=== PATIENT | female | born 1935 | race Two or more races ===

== ENCOUNTER 2017-12-02 13:08 | Emergency (ER) | payer OTHER ==
[~2017-12-02] VITALS: Ht 152.4 cm; Wt 57.6 kg
[2017-12-02 13:21] VITALS: BP 167/85; Ht 152.4 cm; Wt 57.6 kg
[2017-12-02 17:25] LABS: UA SPECIFIC GRAVITY 1.015 (1.005-1.035); microscopic required? YES; urine erythrocyte TRACE (NEGATIVE)
== END 2017-12-02 17:18 | disposition home or self-care (01) ==
LOC: ED 13:08
PROVIDERS: Emergency Medicine
DX: K59.00 Constipation, unspecified (principal); R31.29 Other microscopic hematuria; E78.00 Pure hypercholesterolemia, unspecified; I10 Essential (primary) hypertension; E11.9 Type 2 diabetes mellitus without complications; Z88.2 Allergy status to sulfonamides

== ENCOUNTER 2018-08-07 10:26 | Emergency (ER) | payer OTHER ==
[~2018-08-07] VITALS: Ht 152.4 cm; Wt 48.1 kg
[2018-08-07 10:35] VITALS: Ht 152.4 cm; Wt 48.1 kg
[2018-08-07 11:20] LABS: CALCIUM 8.9 mg/dL (8.5-10.1); CARBON DIOXIDE 26.8 mmol/L (21-32); CHLORIDE SERUM 91 mmol/L (98-107); CREATININE SERUM 0.7 mg/dL (0.6-1.0); GLUCOSE SERUM 114 mg/dL (74-106); SODIUM SERUM 127 mmol/L (136-145)
[2018-08-07 14:30] VITALS: BP 145/80
== END 2018-08-07 14:30 | disposition home or self-care (01) ==
LOC: ED 10:26
PROVIDERS: Emergency Medicine
DX: S80.812A Abrasion, left lower leg, initial encounter (principal); I10 Essential (primary) hypertension; E11.9 Type 2 diabetes mellitus without complications; E78.00 Pure hypercholesterolemia, unspecified; G89.29 Other chronic pain; E87.1 Hypo-osmolality and hyponatremia; Z88.2 Allergy status to sulfonamides; W18.39XA Other fall on same level, initial encounter; Y93.89 Activity, other specified; Y92.89 Other specified places as the place of occurrence of the external cause; Y99.8 Other external cause status
CPT/HCPCS: J1885; J7030

== ENCOUNTER 2018-08-12 10:51 | Emergency (ER) | payer OTHER ==
[~2018-08-12] VITALS: Ht 152.4 cm; Wt 47.4 kg
[2018-08-12 11:01] VITALS: Ht 152.4 cm; Wt 47.4 kg
[2018-08-12 11:32] LABS: BASOPHIL % 0.5 % (0-2); PLATELET COUNT 318 x10^3mcL (130-400); RED CELL DISTRIBUTION WIDTH 14.1 % (11.5-14.5)
[2018-08-12 11:37] LABS: CALCIUM 9.2 mg/dL (8.5-10.1); CARBON DIOXIDE 24.8 mmol/L (21-32); CHLORIDE SERUM 98 mmol/L (98-107); CREATININE SERUM 0.8 mg/dL (0.6-1.0); GLUCOSE SERUM 215 mg/dL (74-106); POTASSIUM SERUM 3.9 mmol/L (3.5-5.1); SODIUM SERUM 131 mmol/L (136-145)
[2018-08-12 12:59] VITALS: BP 176/77
== END 2018-08-12 12:57 | disposition home or self-care (01) ==
LOC: ED 10:51
PROVIDERS: Emergency Medicine
DX: E11.40 Type 2 diabetes mellitus with diabetic neuropathy, unspecified (principal); E87.1 Hypo-osmolality and hyponatremia; I10 Essential (primary) hypertension; E78.00 Pure hypercholesterolemia, unspecified; Z88.2 Allergy status to sulfonamides
CPT/HCPCS: J1885; J7030

== ENCOUNTER 2020-05-25 18:31 | Emergency (ER) | payer OTHER ==
[~2020-05-25] VITALS: Ht 152.4 cm; Wt 52.2 kg
[2020-05-25 18:38] VITALS: Ht 152.4 cm; Wt 52.2 kg
[2020-05-25 20:05] VITALS: BP 169/76
== END 2020-05-25 20:05 | disposition home or self-care (01) ==
LOC: ED 18:31
DX: M96.831 Postprocedural hemorrhage of a musculoskeletal structure following other procedure (principal); I10 Essential (primary) hypertension; E11.9 Type 2 diabetes mellitus without complications; E78.00 Pure hypercholesterolemia, unspecified; M81.0 Age-related osteoporosis without current pathological fracture; Z88.2 Allergy status to sulfonamides

== ENCOUNTER 2020-07-04 14:53 | Emergency (ER) | payer OTHER ==
[~2020-07-04] VITALS: Ht 149.9 cm; Wt 50.3 kg
[2020-07-04 14:59] VITALS: Ht 149.9 cm; Wt 50.3 kg
[2020-07-04 17:47] VITALS: BP 181/77
== END 2020-07-04 17:47 | disposition home or self-care (01) ==
LOC: ED 14:53
DX: M54.41 Lumbago with sciatica, right side (principal); R20.0 Anesthesia of skin; I10 Essential (primary) hypertension; E11.9 Type 2 diabetes mellitus without complications; M81.0 Age-related osteoporosis without current pathological fracture; E78.00 Pure hypercholesterolemia, unspecified; M19.90 Unspecified osteoarthritis, unspecified site; Z85.828 Personal history of other malignant neoplasm of skin; Z88.2 Allergy status to sulfonamides
CPT/HCPCS: J1885